=== PATIENT | male | born 1995 | race Caucasian/White ===

== ENCOUNTER 2018-10-13 14:51 | Emergency (ER) | payer SELFPAY ==
[2018-10-13 14:51] VITALS: BP 153/72; PULSE 60; RESP 16; TEMP 36.8; O2SAT 97; BMI 24.3
--- NOTE | 2018-10-13 15:12 | EKG12_ITS ---
Test Reason : SOB Blood Pressure : / mmHG Vent. Rate : 067 BPM Atrial Rate : 067 BPM P-R Int : 138 ms QRS Dur : 104 ms QT Int : 408 ms P-R-T Axes : 073 081 058 degrees QTc Int : 431 ms Normal sinus rhythm with sinus arrhythmia Normal ECG Confirmed by YESSENIA DIETRICH ([id number]), desk editor MARIA ELENA GONZALES ([id number]) on 10/14/2018 2:18:24 PM Referred By: DARYA Confirmed By:YESSENIA DIETRICH
--- NOTE | 2018-10-13 15:13 | RAD_ITS ---
STUDY: X-RAY CHEST REASON FOR EXAM: Male, 22 years old. Shortness of breath/dyspnea. TECHNIQUE: Single AP portable view of the chest. COMPARISON: None. FINDINGS: The lungs are clear and expanded. There is no demonstrated pleural abnormality. Normal size heart. Normal mediastinum and juanita. Normal visualized pulmonary arteries. Normal visualized aortic arch and descending thoracic aorta. Normal visualized thoracic spine. Normal visualized ribs, clavicles, and shoulders. There is no demonstrated abnormality of the visualized soft tissue structures of the upper abdomen. RAD/Chest 1 View (Portable) IMPRESSION: Normal x-ray examination of the chest. Electronically Signed: Gumaro Mendoza, at 15:31 EDT , Service support ,
--- NOTE | 2018-10-13 15:20 | ED.VISSUMM ---
- ER Visit Summary Date of Service: 10/13/18 Chief Complaint: Poison miguelina History of Present Illness: The patient is a 22 M presenting with poison miguelina. Patient states this started a week ago. He states he was outside around poison miguelina and basically rolled around in poison miguelina. He has tried zthq-vxa-tumklyc cream at home. He complains of itching all over. He also complains of a cough and shortness of breath. He denies fever. Denies chest pain. Denies other complaints. Physical Examination: Vitals are stable. Patient is afebrile. Alert no acute distress. HEENT exam is unremarkable. Pharynx is unremarkable. No tongue swelling or pharyngeal edema. Neck is supple. Lungs are clear and equal bilaterally. Heart is regular rate and rhythm. Abdomen is soft nontender nondistended. Extremities are unremarkable. Skin is warm and dry. Rash consistent with poison miguelina bilateral upper extremities, trunk and lower extremities No focal neurologic deficit. Remainder of exam is unremarkable. Emergency Department Course and Treatment: He was given Solu-Medrol IV. EKG is sinus rhythm rate of 67 with no acute ischemic changes. Chest x-ray shows no acute process. CBC, chemistries unremarkable. Troponin is negative. D-dimer negative. On reevaluation, patient is feeling much improved. He is given a prescription for prednisone. He is advised to follow-up with Dr. Smith pensionholder information clerk for no doctor. Advised return to ED for worsening complaints. Disposition: Discharge home Impression: Poison miguelina This note was generated with [employer] dictation software. It may contain incorrect words, spelling, and punctuation that were not noted in review of the chart prior to signing ED Disposition - Plan for ED Patient: Instructions: Poison Miguelina Dermatitis Prescriptions: Prednisone 10 mg PO UD #33 tab Prescription Printed Referrals: Reyes Smith MD [NON-STAFF] -
[2018-10-13 15:36] LABS: Absolute Neutrophil Count 3.6 X10^3/uL (2.0-7.7); Basophil# 0.02 X10^3/uL; Basophil% 0.3 % (0-1); Eosinophil# 0.13 X10^3/uL; Eosinophils% 2.2 % (0-5); Hematocrit 43.1 % (40-54); Hemoglobin 14.8 g/dL (13.0-16.5); Lymphocyte % 27.6 % (19-41); Mean Corp Hgb Conc 34.3 g/dL (32-36); Mean Corpuscular Hgb 30.7 pg (27.0-32.0); Mean Corpuscular Volume 89.4 fL (80-94); Mean Platelet Vol. 8.9 fl (6.2-12.0); Monocyte# 0.47 X10^3/uL; Monocyte% 8.1 % (0-10); NRBC Flagged by Analyzer 0 % (0-5); Neutrophil # 3.55 X10^3/uL (2.7-7.7); Neutrophil % 61.5 % (47-70); Platelet Count 294 K/mm3 (150-450); RBC Distribution Width CV 12.4 % (11.6-14.6); RBC Distribution Width SD 40.7 fl (35.1-43.9); Red Blood Count 4.82 M/mm3 (4.6-6.2); White Blood Count 5.8 K/mm3 (4.4-11.0)
[2018-10-13] MEDS: MethylPREDNISolone 125 MG/2 ML Vial IV (15:49)
[2018-10-13] MEDS: 0.9% Normal Saline 1,000 ML 1000 ML IV (15:50)
[2018-10-13 15:52] LABS: D-Dimer Quantitative (DVT/PE) < 0.27 FEU/ug/m (0.27-0.49)
[2018-10-13 15:56] LABS: Anion Gap 5 (5-15); BUN 12 mg/dL (7-18); BUN/Creat Ratio 11.1 RATIO (10-20); Calcium,Total 8.7 mg/dL (8.5-10.1); Chloride 107 mmol/L (98-107); Creatinine, Serum 1.08 mg/dL (0.70-1.30); EST Glomerular Filtration Rate 89 mL/min (>60); Est Glom Filt Rate - Afr Amer 107 mL/min (>60); Estimated Creatinine Clearance 122.62 ml/min; Glucose 92 mg/dL (74-106); Potassium 3.9 mmol/L (3.5-5.1); Sodium Level 139 mmol/L (136-145)
--- NOTE | 2018-10-13 16:02 | ED.DEP ---
ED Disposition - Plan for ED Patient: Instructions: Poison Miguelina Dermatitis Prescriptions: Prednisone 10 mg PO UD #33 tablet Referrals: Reyes Smith MD [NON-STAFF] -
== END 2018-10-13 16:29 | disposition home or self-care (01) ==
LOC: ED 16:05
PROVIDERS: Emergency Provider Emergency Medicine
DX: L23.7 Allergic contact dermatitis due to plants, except food (principal); Z72.0 Tobacco use
CPT/HCPCS: 71045; 80048; 84484; 85025; 85379; 93005; 96361; 96374; 99283; J7030; A4216

== ENCOUNTER 2019-02-13 16:08 | Emergency (ER) | payer MEDICAID, SELFPAY ==
[2019-02-10 15:43] VITALS: BMI 24.3
[2019-02-13 16:09] VITALS: BP 155/76; PULSE 79; RESP 16; TEMP 36.9; O2SAT 97; BMI 26.9
--- NOTE | 2019-02-13 16:22 | RAD_ITS ---
STUDY: X-RAY CHEST REASON FOR EXAM: Male, 23 years old. Upper mid abdominal pain TECHNIQUE: PA and lateral views of the chest. COMPARISON: 10/13/2018 FINDINGS: The lungs are clear and expanded. There is no demonstrated pleural abnormality. Normal size heart. Normal mediastinum and juanita. Normal visualized pulmonary arteries. Normal visualized aortic arch and descending thoracic aorta. Normal visualized thoracic spine. Normal visualized ribs, clavicles, and shoulders. There is no demonstrated abnormality of the visualized soft tissue structures of the upper abdomen. RAD/Chest PA and Lateral IMPRESSION: Normal x-ray examination of the chest. Electronically Signed: Peter Mistry DO at 17:16 EST Tel , Service support ,
--- NOTE | 2019-02-13 16:22 | EKG12_ITS ---
Test Reason : ABD PAIN Blood Pressure : / mmHG Vent. Rate : 062 BPM Atrial Rate : 062 BPM P-R Int : 134 ms QRS Dur : 104 ms QT Int : 420 ms P-R-T Axes : 067 081 050 degrees QTc Int : 426 ms Normal sinus rhythm with sinus arrhythmia Normal ECG Confirmed by MANUEL BINGHAM, UVALDO ([id number]), photograph editor CAREY DRUMMOND ([id number]) on 02/14/2019 11:33:27 AM Referred By: CELSA Confirmed By:UVALDO JACKSON MD
--- NOTE | 2019-02-13 16:23 | ED.DCSUM_ITS ---
History of Present Illness Chief Complaint: Abd Pain Detail of Chief Complaint: Cough, chest pain, abdominal pain, vomiting, diarrhea Informant: Patient Onset: Days Narrative: [facility] secondary to bronchitis type symptoms. He does report a chronic cough for the past year or so it seemed to worsen. He is bringing up yellow sputum. He was given a course of Zithromax. Patient states he was doing better yesterday but woke this morning with epigastric pain, nausea, vomiting, and diarrhea. He has had some sweats at home but has not measured a fever. - Past Medical History (1) Bronchitis Status: Acute Past Medical History - Allergies and Home Meds Allergies/Adverse Reactions: Allergies No Known Allergies Allergy (Verified 02/10/19 15:03) Primary Care Physician: Care Physician,No Primary [Primary Care Provider] - Surgical History: no surgical history Lives: With Family Smoking Status: Current every day smoker Alcohol: Occasional Review of Systems General: Reports: Fever, Subjective, Sweats Eyes: Denies: Visual changes - bilaterally ENT: Denies: Bilateral ear pain Cardiovascular: Reports: Chest pain Respiratory: Reports: Cough, Sputum Gastrointestinal: Reports: Abdominal pain, Nausea, Vomiting, Diarrhea Genitourinary: Denies: Dysuria Musculoskeletal: Reports: Myalgias. Denies: Extremity Pain Skin: Denies: Rash Neurological: Reports: Headache Psych: Denies: Depression, Anxiety Hematologic: Denies: Easy bruising, Easy bleeding Allergy: Denies: Uticaria Physical Exam Vital Signs/Narrative: Vital Signs Temp Pulse Resp BP Pulse Ox 02/13/19 16:09 98.4 F 79 16 155/76 H 97 Inital Vital Signs reviewed: Yes General: Well nourished, Well developed Head: Normocephalic ENT: Moist mucous membranes Neck: Supple, Nontender Cardiovascular: Regular rate, Regular rhythm Respiratory: No distress, CTA bilaterally Abdomen: Soft, Tender - Mild epigastric tenderness., Hypoactive bowel sounds. Negative for: Guarding, Rebound tenderness Extremities: Nontender Skin: Normal color Neurological: Alert, Oriented x3 Psychological: Normal affect Diagnostic/Tx/Re-eval Impressions Chest X-Ray 02/13/19 16:22 IMPRESSION: Normal x-ray examination of the chest. Electronically Signed: Peter Mistry DO at 17:16 EST Tel , Service support , 02/13/19 16:22 Chest PA and Lateral [RAD] Stat Laboratory Results 02/13/19 02/13/19 16:37 16:37 WBC 10.2 RBC 5.06 Hgb 15.0 Hct 44.2 MCV 87.4 MCH 29.6 MCHC 33.9 RDW Std Deviation 39.4 RDW Coeff of John 12.3 Plt Count 261 MPV 9.2 Immature Gran % (Auto) 0.300 Neut % (Auto) 82.4 H Lymph % (Auto) 9.7 L Waller % (Auto) 6.1 Eos % (Auto) 1.4 Baso % (Auto) 0.1 Absolute Neuts (auto) 8.4 H Absolute Lymphs (auto) 0.99 Nucleated RBC % 0 Sodium 139 Potassium 4.0 Chloride 110 H Carbon Dioxide 25.0 Anion Gap 4 L BUN 17 Creatinine 1.04 Estim Creat Clear Calc 126.24 Est GFR (MDRD) Af Amer 112 Est GFR (MDRD) Non-Af 92 BUN/Creatinine Ratio 16.3 Glucose 80 Calcium 8.4 L Total Bilirubin 0.80 Direct Bilirubin 0.18 AST 128 H ALT 86 H Alkaline Phosphatase 67 Total Protein 7.6 Albumin 4.1 Globulin 3.5 Lipase 74 - EKG Initial EKG Interpretation: Sinus Rhythm - Sinus at 62 with no acute ischemia. - Medical Decision Making Patient was given Toradol, Zofran, Bentyl, and IV fluids. On repeat evaluation he does feel improved. I discussed with him I believe his symptoms are viral in nature. He will be given prescriptions for naproxen, Zofran, Bentyl at home. Patient will be referred to Dr. Quiroz for follow-up, next on the no doc list. ED Disposition - Plan for ED Patient: Disposition: Home or Assisted Living Diagnosis: Viral gastroenteritis Instructions: GASTROENTERITIS, Viral (4y-Adult) Prescriptions: Dicyclomine HCl [Bentyl] 20 mg PO TIDAC #20 cap Transmission Status: Pending to [facility] #30 Naproxen [Naprosyn] 500 mg PO BID PRN PRN #20 tab PRN Reason: Pain Score 1-10/10 Transmission Status: Pending to [facility] #30 Ondansetron [Zofran Odt] 4 mg PO Q8H PRN PRN #10 tab PRN Reason: Nausea Transmission Status: Pending to [facility] #30 Referrals: Edvin Quiroz III, MD [STAFF PHYSICIAN] - As Needed
[2019-02-13] MEDS: Ketorolac 30 MG/ML Syringe IV (16:34)
[2019-02-13] MEDS: Ondansetron 4 MG/2 ML Vial IV (16:34)
[2019-02-13] MEDS: 0.9% Normal Saline 1,000 ML 1000 ML IV (16:34)
[2019-02-13] MEDS: Dicyclomine 10 MG Capsule 20 MG PO (16:40)
[2019-02-13 16:53] LABS: Absolute Lymphocyte Count 0.99 X10^3/uL (0.83-4.51); Absolute Neutrophil Count 8.4 X10^3/uL (2.0-7.7); Basophil# 0.01 X10^3/uL; Basophil% 0.1 % (0-1); Eosinophil# 0.14 X10^3/uL; Eosinophils% 1.4 % (0-5); Hematocrit 44.2 % (40-54); Lymphocyte # 0.99 X10^3/ul (4.0); Lymphocyte % 9.7 % (19-41); Mean Corp Hgb Conc 33.9 g/dL (32-36); Mean Corpuscular Hgb 29.6 pg (27.0-32.0); Mean Corpuscular Volume 87.4 fL (80-94); Mean Platelet Vol. 9.2 fl (6.2-12.0); Monocyte# 0.62 X10^3/uL; Monocyte% 6.1 % (0-10); NRBC Flagged by Analyzer 0 % (0-5); Neutrophil # 8.43 X10^3/uL (2.7-7.7); Neutrophil % 82.4 % (47-70); Platelet Count 261 K/mm3 (150-450); RBC Distribution Width CV 12.3 % (11.6-14.6); RBC Distribution Width SD 39.4 fl (35.1-43.9); Red Blood Count 5.06 M/mm3 (4.6-6.2); White Blood Count 10.2 K/mm3 (4.4-11.0)
[2019-02-13 17:17] LABS: AST(SGOT) 128 U/L (15-37); Alanine Aminotransfer ALT/SGPT 86 U/L (16-61); Albumin, Serum 4.1 g/dL (3.2-5.0); Alkaline Phosphatase 67 U/L (45-117); Anion Gap 4 (5-15); BUN 17 mg/dL (7-18); BUN/Creat Ratio 16.3 RATIO (10-20); Bilirubin, Direct 0.18 mg/dL (0.00-0.30); Calcium,Total 8.4 mg/dL (8.5-10.1); Chloride 110 mmol/L (98-107); Creatinine, Serum 1.04 mg/dL (0.70-1.30); EST Glomerular Filtration Rate 92 mL/min (>60); Est Glom Filt Rate - Afr Amer 112 mL/min (>60); Estimated Creatinine Clearance 126.24 ml/min; Globulin 3.5 g/dL (2.2-4.2); Glucose 80 mg/dL (74-106); Lipase 74 U/L (73-393); Protein, Total 7.6 g/dL (6.4-8.2); Sodium Level 139 mmol/L (136-145)
[2019-02-13 17:56] VITALS: BP 121/76; PULSE 73; RESP 16; O2SAT 99
== END 2019-02-13 17:57 | disposition home or self-care (01) ==
PROVIDERS: Emergency Provider Emergency Medicine
DX: A08.4 Viral intestinal infection, unspecified (principal); F17.200 Nicotine dependence, unspecified, uncomplicated
CPT/HCPCS: 71046; 80048; 80076; 83690; 85025; 93005; 96361; 96374; 96375; 99284; J7030; A4216; J2405

== ENCOUNTER 2019-03-03 12:27 | Emergency (ER) | payer MEDICAID, SELFPAY ==
[2019-03-03 12:28] VITALS: BP 141/83; PULSE 80; RESP 17; TEMP 37.1; O2SAT 99; BMI 26.9
--- NOTE | 2019-03-03 12:31 | RAD_ITS ---
STUDY: X-RAY - LEFT ANKLE REASON FOR EXAM: Male, 23 years old. LEFT FOOT INJURY WHILE LIFTING COUCH OUT OF A TRUCK. TECHNIQUE: 3 view(s) of the ankle. COMPARISON: None. FINDINGS: No acute fracture, dislocation or osseous destruction. Ankle mortise well aligned. No significant joint space narrowing. No significant productive changes. Mild swelling. RAD/Ankle min 3 Views IMPRESSION: Left ankle intact Electronically Signed: Shane Lang DO at 13:15 EST Tel , Service support ,
--- NOTE | 2019-03-03 13:11 | ED.DCSUM_ITS ---
History of Present Illness Chief Complaint: Lower Extremity Injury Informant: Patient Onset: Yesterday Narrative: Patient states that late last night he was squatted down attempting to lift up a couch when his left ankle rolled inward resulted in pain and swelling parti cularly laterally but he also has some pain medially. It very painful for him difficult to ambulate. Denies any upper leg symptoms. He denies any pain in the lateral aspect of his foot. Past Medical History - Allergies and Home Meds Allergies/Adverse Reactions: Allergies No Known Allergies Allergy (Verified 03/03/19 12:28) Primary Care Physician: Care Physician,No Primary [Primary Care Provider] - Surgical History: no surgical history Smoking Status: Current every day smoker Review of Systems General: Denies: Chills, Fever, Sweats Eyes: Denies: Visual changes - bilaterally, Diplopia ENT: Denies: Rhinorrhea, Sore throat Cardiovascular: Denies: Chest pain, Palpitations Respiratory: Denies: Dyspnea, Cough, Dyspnea on exertion Gastrointestinal: Denies: Abdominal pain, Nausea, Vomiting, Diarrhea, Melena, Hematochezia Genitourinary: Denies: Dysuria, Hematuria, Frequency Musculoskeletal: Reports: Extremity Pain. Denies: Neck pain, Back pain Skin: Denies: Rash, Wounds Neurological: Denies: Headache, Weakness, Numbness Physical Exam Vital Signs/Narrative: Vital Signs Temp Pulse Resp BP Pulse Ox 03/03/19 12:28 98.8 F 80 17 141/83 H 99 Inital Vital Signs reviewed: Yes General: Well nourished, Well developed, No Acute Distress Head: Normocephalic, Atraumatic Eyes: Perrl, EOMI ENT: Moist mucous membranes, No rhinorrhea Neck: Supple, Nontender Cardiovascular: Regular rate, Regular rhythm, No murmurs Respiratory: No distress, CTA bilaterally, Chest nontender Abdomen: Soft, Nontender, Nondistended, Normal bowel sounds Back: Nontender, Normal Inspection Extremities: Tenderness - There is tenderness over the lateral aspect of the lateral malleolus. There is tenderness there as well as over the medial aspect. No fifth metatarsal pain. No fibular head pain. There is no tibial shaft pain. Skin: Normal color, No rash Neurological: Alert, Oriented x3, Cranial nerves II-XII grossly intact, Normal Strength, Normal Sensation Psychological: Normal affect, Normal Mood Diagnostic/Tx/Re-eval - Medical Decision Making X-rays of the ankle did not demonstrate an obvious fracture. Patient was placed in Lalo wrap and given crutches. He will follow podiatry if he is not improving. Patient was advised that by definition a sprain is a stretching or tearing of ligaments. We talked about the possibility of occult fracture. Patient notes understanding of her plan is comfortable with it. ED Disposition - Plan for ED Patient: Disposition: Home or Assisted Living Diagnosis: Left ankle sprain Instructions: Sprain, Ankle, with X-Ray Referrals: Brian Abbott DPM [STAFF PHYSICIAN] - 10-14 Days if not better
[2019-03-03 13:43] VITALS: PULSE 71; PULSE 77; RESP 16; RESP 18; O2SAT 98; O2SAT 99
== END 2019-03-03 13:54 | disposition home or self-care (01) ==
LOC: ED 13:37
PROVIDERS: Emergency Provider Emergency Medicine
DX: S93.402A Sprain of unspecified ligament of left ankle, initial encounter (principal); X50.0XXA Overexertion from strenuous movement or load, initial encounter; Y93.89 Activity, other specified; F17.200 Nicotine dependence, unspecified, uncomplicated
CPT/HCPCS: 73610; 99283

== ENCOUNTER 2019-08-17 10:44 | Emergency (ER) | payer MEDICAID, SELFPAY ==
[2019-08-17 10:45] VITALS: BP 155/77; PULSE 81; RESP 17; TEMP 36.3; O2SAT 95; BMI 29.7
--- NOTE | 2019-08-17 10:53 | ED.VIS.GEN ---
History of Present Illness Chief Complaint: Upper Extremity Injury Informant: Patient Onset: Today Context: Sudden Onset Current Severity: Moderate Maximum Severity: Moderate Narrative: Patient presents with pain to the right shoulder. He states he was trying to catch an object that was very heavy. He caught it about chest height and felt his right arm give out. He felt a pop in his right shoulder. He is right-hand dominant. He denies paresthesias into the hand. He did not take anything for pain prior to arrival. He did drive himself to the emergency room. Past Medical History - Allergies and Home Meds Allergies/Adverse Reactions: Allergies No Known Allergies Allergy (Verified 08/17/19 10:45) Primary Care Physician: Care Physician,No Primary [Primary Care Provider] - Prior records reviewed: Yes Past Medical History: None Surgical History: no surgical history Lives: With Family Smoking Status: Current every day smoker Review of Systems General: Denies: Chills, Fever Eyes: Denies: Visual changes - bilaterally ENT: Denies: Bilateral ear pain Cardiovascular: Denies: Chest pain Respiratory: Denies: Dyspnea, Cough Gastrointestinal: Denies: Abdominal pain, Nausea, Vomiting, Diarrhea Musculoskeletal: Reports: Extremity Pain Neurological: Reports: Weakness. Denies: Parasthesia Hematologic: Denies: Easy bruising, Easy bleeding Allergy: Denies: Uticaria Physical Exam Vital Signs/Narrative: Vital Signs Temp Pulse Resp BP Pulse Ox 08/17/19 10:45 97.4 F L 81 17 155/77 H 95 Inital Vital Signs reviewed: Yes General: Well nourished, Well developed Head: Normocephalic ENT: Moist mucous membranes Neck: Supple Cardiovascular: Regular rate, Regular rhythm Respiratory: No distress, CTA bilaterally Abdomen: Soft, Nontender Extremities: - - No tenderness along the right clavicle. He does have reproducible tenderness over the proximal humeral head along tendon insertion sites. No obvious deformity or sign of dislocation. He does have decreased range of motion secondary to pain. There is no tenderness at the elbow, forearm, wrist, or hand. Strong distal pulses and normal sensation are noted. No posterior tenderness over the scapula. Skin: Normal color Neurological: Alert, Oriented x3 Psychological: Normal affect Diagnostic/Tx/Re-eval Impressions Shoulder X-Ray 08/17/19 11:00 IMPRESSION: Normal x-ray examination of the shoulder. Electronically Signed: Gumaro Mendoza at 11:17 EDT , Service support , 08/17/19 11:00 Shoulder min 2 Views [RAD] Stat - Medical Decision Making Patient was given naproxen on arrival. X-ray results are discussed with him. He will be placed in a sling. He is instructed to come out of the sling a few times a day to work on range of motion at his shoulder. He is referred to orthopedics if not improving. He will be given a prescription for naproxen as well as a few Aurelia for breakthrough pain. ED Disposition - Plan for ED Patient: Disposition: Home or Assisted Living Diagnosis: Sprain of right shoulder Instructions: ED Shoulder Sprain Prescriptions: Naproxen [Naprosyn] 500 mg PO BID PRN PRN #20 tab PRN Reason: Pain Score 4-10/10 Transmission Status: Pending to [facility] #30 Hydrocodone Bitart/Apap 5-325 [Aurelia 5MG-325MG] 1 tab PO Q6H PRN PRN 3 Days #10 tab PRN Reason: Pain Transmission Status: Sent to [facility] #30 Referrals: Isabel Heller DO [STAFF PHYSICIAN] - 3-5 Days if not improving
--- NOTE | 2019-08-17 11:00 | RAD_ITS ---
STUDY: X-RAY - RIGHT SHOULDER REASON FOR EXAM: Male, 23 years old. FELT A POP IN RIGHT SHOULDER WHILE ATTEMPTING TO CATCH SOMETHING THIS AM TECHNIQUE: 4 view(s) of the shoulder. COMPARISON: None. FINDINGS: Normal glenohumeral articulation. Normal acromioclavicular joint. Normal acromion. Normal humeral head and visualized proximal humerus. The soft tissue structures are unremarkable. Normal visualized pulmonary apex. RAD/Shoulder min 2 Views IMPRESSION: Normal x-ray examination of the shoulder. Electronically Signed: Gumaro Mendoza, at 11:17 EDT , Service support ,
[2019-08-17] MEDS: Naproxen 500 MG Tablet PO (11:25)
== END 2019-08-17 11:46 | disposition home or self-care (01) ==
PROVIDERS: Emergency Provider Emergency Medicine
DX: S43.401A Unspecified sprain of right shoulder joint, initial encounter (principal); X58.XXXA Exposure to other specified factors, initial encounter; Y93.89 Activity, other specified; Y92.9 Unspecified place or not applicable; F17.200 Nicotine dependence, unspecified, uncomplicated
CPT/HCPCS: 73030; 99283

== ENCOUNTER 2020-06-02 21:37 | Emergency (ER) | payer MEDICAID, SELFPAY ==
[2020-06-02 21:39] VITALS: BP 158/69; PULSE 78; RESP 16; TEMP 36.4; O2SAT 99; BMI 32.1
--- NOTE | 2020-06-02 22:06 | ED.VIS.GEN ---
History of Present Illness Chief Complaint: Sore Throat Informant: Patient Onset: Weeks Maximum Severity: Mild Narrative: Patient presents complaining of sore throat on and off for months, he indicates basically he smokes quite a bit of cigarettes and he has a propensity to smoke quite a bit of marijuana and recently has been smoking marijuana throughout pipe that makes the marijuana very hot it causes the fumes that he inhales to be hot he smoked this hot fumes of marijuana today and had persistent sense of throat discomfort he came in for evaluation, He has no history of strep throat no history of HEENT problems no past history, he has had no stridor no drooling he is eating and drinking well this was precipitated directly by 6 inhaling these hot marijuana fumes Past Medical History - Allergies and Home Meds Allergies/Adverse Reactions: Allergies No Known Allergies Allergy (Verified 06/02/20 21:41) Primary Care Physician: Care Physician,No Primary [Primary Care Provider] - Past Medical History: None Surgical History: no surgical history Smoking Status: Current every day smoker Physical Exam Vital Signs/Narrative: Vital Signs Temp Pulse Resp BP Pulse Ox 06/02/20 21:39 97.6 F L 78 16 158/69 H 99 General: Well nourished, Well developed, No Acute Distress Head: Normocephalic, Atraumatic Eyes: Perrl, EOMI ENT: Moist mucous membranes, No rhinorrhea, - - Patient's HEENT exam is entirely unremarkable speaking full sentences his oral cavity pharynx uvula all mucosal tissue unremarkable he is swallowing normally speaking normally palpation of his neck and the larynx is completely negative he reports that he feels if his throat is inflamed Neck: Supple, Nontender Cardiovascular: Regular rate, Regular rhythm, No murmurs Respiratory: No distress, CTA bilaterally, Chest nontender Abdomen: Soft, Nontender, Nondistended, Normal bowel sounds Back: Nontender, Normal Inspection Extremities: Nontender, No edema Skin: Normal color, No rash Neurological: Alert, Oriented x3, Cranial nerves II-XII grossly intact, Normal Strength, Normal Sensation Psychological: Normal affect, Normal Mood Diagnostic/Tx/Re-eval - Medical Decision Making Patient is in no distress I had a long conversation with him, there is no signs of any type of HEENT airway emergency I have cautioned him not to continue to smoke cigarettes or the marijuana in any way we did provide him with viscous lidocaine to gargle and then spit out to relieve his pain, he will stay on cold liquids follow-up with his outpatient providers and return for change in symptoms Home stable Final impression throat irritation after smoking hot marijuana fumes ED Disposition - Plan for ED Patient: Diagnosis: Pharyngitis Instructions: ED Pharyngitis, Viral Referrals: Care Physician,No Primary [Primary Care Provider] - Altagracia Williamson [NON-STAFF] - Additional Instructions: Stop smoking the marijuana and cigarettes, cold liquids follow-up with outpatient providers return for change in symptoms
[2020-06-02 22:31] VITALS: RESP 16
== END 2020-06-02 22:31 | disposition home or self-care (01) ==
LOC: ED 22:22
PROVIDERS: Emergency Provider Emergency Medicine
DX: J02.9 Acute pharyngitis, unspecified (principal); F17.210 Nicotine dependence, cigarettes, uncomplicated
CPT/HCPCS: 99283

== ENCOUNTER 2020-06-30 02:36 | Emergency (ER) | payer MEDICAID, SELFPAY ==
[2020-06-30 02:36] VITALS: BP 145/83; PULSE 78; RESP 16; TEMP 36.4; O2SAT 98; BMI 31.4
--- NOTE | 2020-06-30 03:28 | EDS_ITS ---
HPI History of Present Illness Chief Complaint: Eye Problem Informant: patient Narrative Narrative: Patient is a 24-year-old previously healthy male who presents to the emergency department for right eye pain. This started a few hours prior to arrival in the ED. He has never had this before in the past. He noticed that his eye was very red and he thought that there was something in it. He does have a foreign body sensation in the eye. He has not noticed any discharge from the eye. He has had a mild cough that is productive of yellow sputum. Denies any fevers or chills. He said a mild sore throat lately. No known sick contacts. He has had multiple coronavirus test which have all been negative. He denies any chest pain or shortness of breath. No vision change or loss. No significant ear pain. [facility] Medical History (Updated 06/30/20 @ 04:[address] William Gutierres, DO) Anemia Back pain Chest pain Dizziness Fatigue Head ache Knee pain Loss of consciousness Neck pain Shortness of breath Shoulder pain Weight loss Home Medications erythromycin 0.5 inch OPHTHALMIC (EYE) BID 7 Days #1 g 06/30/20 [Rx Last Taken U nknown] Allergy/AdvReac Type Severity Reaction Status Date / Time No Known Allergies Allergy Verified 06/30/20 02:36 Family History Other Diabetes Heart disease Social History (Updated 04/19/20 @ 13:06 by Jemal WEST, PA) Smoking Status: Current every day smoker alcohol intake: current Alcohol type: beer ROS ROS ED Constitutional Constitutional ED: Denies chills or fever(s) Eyes Eyes: Reports other Details: Eye pain and redness ; Denies blurry vision or change in vision ENT ENT ED: Reports sore throat; Denies epistaxis or rhinorrhea Cardiovascular Cardiovascular: Denies chest pain or palpitations Respiratory/Chest Respiratory/Chest: Reports cough; Denies dyspnea or dyspnea on exertion Gastrointestinal Gastrointestinal: Denies abdominal pain, diarrhea, nausea or vomiting Musculoskeletal Musculoskeletal: Denies back pain or neck pain Integumentary Denies rash Neurologic Neurologic: Denies dizziness, headache(s) or weakness EXAM Physical Exam Const Vital Signs: 06/30/20 02:36 Temperature 97.5 F L Temperature Source Temporal Pulse Rate 78 Respiratory Rate 16 Blood Pressure 145/83 H Blood Pressure Mean 103 Pulse Ox 98 Oxygen Delivery Method Room Air Positive well nourished and well developed General Appearance ED: well developed and NAD HEENT Reports normocephalic, head/scalp atraumatic and moist mucous membranes Eyes PERRL and EOMs intact bilaterally General Eye ED: Yes other Other Details: Pupils are equal round and reactive to light ; Negative for proptosis Eyelid: other Other Details: Mild swelling of upper and lower eyelid. Sclera: sclera abnormal Positive for right Details: scleral injection Neck no lymphadenopathy and supple General: Negative for tenderness Chest Wall inspection of chest normal Resp normal respiratory effort and clear to auscultation bilaterally Auscultation: Negative for rales, rhonchi or wheezes Cardio regular rate, regular rhythm and no murmurs GI normal to inspection, nondistended, normoactive bowel sounds and non-tender Palpation: soft; Negative for guarding or rebound tenderness present Back/Spine no CVA tenderness Extremity normal to inspection General Extremety ED: Negative for edema or tenderness General Extremity: Negative for edema Neuro oriented x3 Sensorium / Orientation: alert Psych mental status grossly normal Skin no rashes or lesions noted MDM MDM MDM Narrative Medical decision making narrative: Patient presents to the ED for right eye redness and pain. He does have URI symptoms currently this could be an infective conjunctivitis. He does have a foreign body sensation so fluoroscein exam exam is being performed. Exam did not reveal any corneal abrasion. We'll treat this as conjunctivitis. If he develops any purulent discharge she can start the antibiotic that was prescribed. Most likely viral conjunctivitis at this time given his URI symptoms with it. He is to follow-up with his PCP. Return precautions are reviewed with him. He understands and is agreeable this plan. Discharged home in stable condition. All questions were answered. Discharge Plan Triage Chief Complaint: Eye Problem ED Provider: William Gutierres Dx/Rx/DC Orders Clinical Impression: Conjunctivitis Instructions: ED Conjunctivitis, Viral Prescriptions: New erythromycin 5 mg/gram (0.5 %) ointment 0.5 inch ophthalmic (eye) BID 7 Days Qty: 1 RF: 0 Primary Care Provider: Care Physician,No Primary Referrals: Care Physician,No Primary [Primary Care Provider] - 3-5 Days if not improving Disposition Disposition: Home, self care Discharge Date/Time: 06/30/20 04:09
[2020-06-30] MEDS: Tetracaine 0.5% Ophthalmic Bottle 1 DRP RIGHT EYE (04:07)
== END 2020-06-30 04:09 | disposition home or self-care (01) ==
PROVIDERS: Emergency Provider Emergency Medicine
DX: H10.9 Unspecified conjunctivitis (principal); F17.200 Nicotine dependence, unspecified, uncomplicated
CPT/HCPCS: 99282

== ENCOUNTER 2021-04-25 16:51 | Emergency (ER) | payer BC, OTHER, MEDICAID, SELFPAY ==
[2021-04-25 16:51] VITALS: BP 170/89; PULSE 81; RESP 14; TEMP 36.2; O2SAT 97; BMI 29.0
--- NOTE | 2021-04-25 17:39 | EX.ED.VIS.UR ---
HPI HPI - URI History of Present Illness Chief Complaint: Sore Throat Informant: patient Onset/Context/Timing Onset: Weeks Context: Sudden Onset Timing: Continuous Quality: Throat pain, hoarse voice and a lesion posterior pharynx Location: Posterior pharynx anterior neck Current Severity: Mild Maximum Severity: Moderate Worsened by: Swallowing Associated Symptoms Associated Symptoms: Negative for Nasal Congestion, Headache, Sinus Pressure, Myalgias, Nausea, Vomiting, Diarrhea, Shortness of Breath, Chest Pain, Nonproductive cough, Hemoptysis and Productive Cough Narrative Narrative: Patient is a 25-year-old male who presents because of throat pain. He says of the lesion the back of his throat. He reports it is painful to swallow liquids or solids. His voice is hoarse. He denies fever. He denies rhinorrhea, congestion or postnasal drainage. He denies cough. He complains of pain over the larynx. He denies history of medic fever, heart murmur, SBE or being immune suppressed. Prior similar symptoms: Yes Recent Illness/Hospitalization: No ROS ROS ED Constitutional Constitutional ED: Denies chills, fever(s), subjective, sweats or weight loss Eyes Eyes: Denies blurry vision, change in vision or diplopia ENT ENT ED: Reports sore throat; Denies ear pain or rhinorrhea Cardiovascular Cardiovascular: Denies chest pain or palpitations Respiratory/Chest Respiratory/Chest: Denies cough, dyspnea or dyspnea on exertion Gastrointestinal Gastrointestinal: Denies abdominal pain, diarrhea, nausea or vomiting Musculoskeletal Musculoskeletal: Reports neck pain; Denies arthralgias, back pain or myalgias Integumentary Denies rash Neurologic Neurologic: Denies headache(s), paresthesias or weakness Hematologic/Lymphatic Hematologic/Lymphatic: Denies easy bleeding or easy bruising Allergic/Immunologic Allergic/Immunologic ED: Denies mouth swelling or tongue swelling PFSH PFSH Medical History (Updated 04/25/21 @ 18:[address] Du Rowe MD) Anemia Back pain Chest pain Dizziness Fatigue Head ache Knee pain Loss of consciousness Neck pain Shortness of breath Shoulder pain Weight loss Home Medications NK 04/25/21 [History Last Taken Unknown] Allergy/AdvReac Type Severity Reaction Status Date / Time No Known Allergies Allergy Verified 04/25/21 17:55 Family History Other Diabetes Heart disease Social History (Updated 04/25/21 @ 17:[address] Du Rowe MD) household members: other Smoking Status: Current every day smoker tobacco type: cigarettes alcohol intake: current Alcohol type: beer substance use type: does not use EXAM Physical Exam Const Vital Signs: 04/25/21 16:51 Temperature 97.2 F L Temperature Source Temporal Pulse Rate 81 Respiratory Rate 14 Blood Pressure 170/89 H Blood Pressure Mean 116 Pulse Ox 97 Oxygen Delivery Method Room Air Blood pressure is elevated. He denies history of hypertension. Positive well nourished and well developed General Appearance ED: well developed and NAD; Negative for cyanotic, diaphoretic or pallor HEENT Reports TM's clear and moist mucous membranes normocephalic and atraumatic Face and Sinus: Negative for sinus tenderness External Ear: external ears normal External Auditory Canal: EAC's normal Tympanic Membrane ED: Yes TM's clear Teeth and Gingiva: Negative for caries Throat: posterior oropharynx abnormal Positive for erythema; Negative for posterior oropharynx normal or tonsils abnormal Eyes PERRL and EOMs intact bilaterally General Eye ED: Negative for pale conjunctiva or scleral icterus Neck no lymphadenopathy, supple, no meningeal signs and no JVD Neck Narrative: There is pain to the patient and movement of larynx. There is no inspiratory expiratory stridor. Resp normal respiratory effort and clear to auscultation bilaterally Cardio S1 normal heart sound, S2 normal heart sound and no murmurs Rate: regular rate Rhythm: regular rhythm Bruits: Negative for carotid bruit Neuro oriented x3 and CN's II-XII intact bilaterally Sensorium / Orientation: alert Psych mental status grossly normal Skin General Skin Exam: Negative for jaundice or pallor Lesions: no lesions Rashes: no rashes MDM MDM MDM Narrative Medical decision making narrative: Patient has evidence of pharyngitis. With him having prolonged symptoms now complaining of hoarse voice and pain with movement of the larynx will obtain soft tissue x-ray of the neck. CBC was obtained to assess differential and rule out any atypical presentation for possible neoplasm. He denies history of autoimmune disorder nor was or family history Bite-A-Mins disorder or any unusual types of cancer. Lab Data Attestation: I reviewed the patient's lab results. Lab results narrative: CBC is unremarkable with normal differential. Rapid strep was negative. Labs: Laboratory Results - last 24 hr 04/25/21 17:51 WBC 7.4 RBC 5.22 Hgb 15.8 Hct 45.1 MCV 86.4 MCH 30.3 MCHC 35.0 RDW Std Deviation 39.3 RDW Coeff of John 12.4 Plt Count 316 MPV 9.3 Immature Gran % (Auto) 0.700 Neut % (Auto) 69.4 Lymph % (Auto) 22.7 Edmonson % (Auto) 5.9 Eos % (Auto) 0.9 Baso % (Auto) 0.4 Absolute Neuts (auto) 5.2 Absolute Lymphs (auto) 1.69 Nucleated RBC % 0 Radiography Diagnostic Testin view x-ray of the neck was negative. There is no evidence of sublingular swelling to suggest tonsillitis, there is no prevertebral swelling to suggest retropharyngeal abscess or evidence of a parapharyngeal abscess. The epiglottis is normal. Discharge Plan Triage Chief Complaint: Sore Throat ED Provider: Du Rowe Dx/Rx/DC Orders Clinical Impression: Pharyngitis, Laryngitis Prescriptions: No Action NK RF: 0 Primary Care Provider: Care Physician,No Primary Referrals: Tayler Blanco MD [STAFF PHYSICIAN] - 3-5 Days if not improving Care Physician,No Primary [Primary Care Provider] - Activity Restrictions/Additional Instructions: 1. Chloraseptic spray every 1-2 hours for throat pain 2. If your strep culture is positive you will be contacted otherwise this is a viral infection. And treatment is symptomatic. Disposition Disposition: Home, Self Care
--- NOTE | 2021-04-25 18:05 | RAD_ITS ---
INDICATION: Throat/neck pain, hoarse voice EXAMINATION/TECHNIQUE: X-RAY - XR Neck Soft Tissue COMPARISON: None. FINDINGS: SOFT TISSUES: Unremarkable. No radiopaque foreign body. EPIGLOTTIS: No pathologic thickening or enlargement. PROXIMAL AIRWAY: Grossly patent. RAD/Neck for Soft Tissue IMPRESSION: Negative. Electronically Signed: Rodo Molina MD at 18:52 EST ,
[2021-04-25 18:08] LABS: Absolute Lymphocyte Count 1.69 X10^3/uL (0.83-4.51); Absolute Neutrophil Count 5.2 X10^3/uL (2.0-7.7); Basophil# 0.03 X10^3/uL; Basophil% 0.4 % (0-1); Eosinophil# 0.07 X10^3/uL; Eosinophils% 0.9 % (0-5); Hematocrit 45.1 % (40-54); Hemoglobin 15.8 g/dL (13.0-16.5); Lymphocyte # 1.69 X10^3/ul (0.83-4.51); Lymphocyte % 22.7 % (19-41); Mean Corpuscular Hgb 30.3 pg (27.0-32.0); Mean Corpuscular Volume 86.4 fL (80-94); Mean Platelet Vol. 9.3 fl (6.2-12.0); Monocyte# 0.44 X10^3/uL; Monocyte% 5.9 % (0-10); NRBC Flagged by Analyzer 0 % (0-5); Neutrophil # 5.16 X10^3/uL (2.7-7.7); Neutrophil % 69.4 % (47-70); Platelet Count 316 K/mm3 (150-450); RBC Distribution Width CV 12.4 % (11.6-14.6); RBC Distribution Width SD 39.3 fl (35.1-43.9); Red Blood Count 5.22 M/mm3 (4.6-6.2); White Blood Count 7.4 K/mm3 (4.4-11.0)
== END 2021-04-25 18:48 | disposition home or self-care (01) ==
PROVIDERS: Emergency Provider Emergency Medicine; Visit Provider Emergency Medicine
DX: J04.0 Acute laryngitis (principal); F17.210 Nicotine dependence, cigarettes, uncomplicated
CPT/HCPCS: 36415; 70360; 85025; 87880; 99282

== ENCOUNTER → 2022-09-09 | Outpatient (CLI) | payer MEDICAID, SELFPAY ==
--- NOTE | 2022-09-09 17:10 | CT_ITS ---
EXAM: CT NECK WITH INTRAVENOUS CONTRAST CLINICAL INDICATION: THROAT PAIN ON RIGHT, MARKED WITH BB TECHNIQUE: Helically acquired images were obtained of the neck with intravenous contrast. This CT exam was performed using one or more of the following dose reduction techniques: automated exposure control, adjustment of the mA and/or kV according to patient size, and/or use of iterative reconstruction technique. CONTRAST: 75 cc of Isovue-300 IV. RADIATION DOSE: CTDIvol = 16.75 mGy, DLP = 535.58 mGy-cm COMPARISON: No relevant prior studies available. FINDINGS: NASOPHARYNX: Unremarkable. SUPRAHYOID NECK: Unremarkable. Oropharynx, oral cavity, parapharyngeal space and retropharyngeal space are unremarkable. INFRAHYOID NECK: Unremarkable. The larynx, hypopharynx and supraglottis are unremarkable. SUBMANDIBULAR/PAROTID GLANDS: Unremarkable. Glands are normal in size. THYROID: Unremarkable. No enlarged or calcified nodules. BONES/JOINTS: No acute fracture. SOFT TISSUES: Unremarkable. VASCULATURE: No acute findings. LYMPH NODES: Unremarkable. No lymphadenopathy. LUNG APICES: Unremarkable as visualized. CT/Soft Tissue Neck WITH Contrast IMPRESSION: Normal neck CT. Electronically Signed: Jerry Jang MD at 23:27 EDT ,
== END | disposition home or self-care (01) ==
LOC: CT 17:01
PROVIDERS: Referring Provider Otolaryngology; Visit Provider Otolaryngology
DX: R07.0 Pain in throat (principal)
CPT/HCPCS: 70491; Q9967

== ENCOUNTER 2022-09-29 09:32 | Emergency (ER) | payer MEDICAID, SELFPAY ==
[2022-09-29 09:33] VITALS: BP 168/97; PULSE 71; RESP 18; TEMP 36.1; O2SAT 100; BMI 27.8
--- NOTE | 2022-09-29 09:46 | EKG12_ITS ---
Test Reason : FALL/TRAUMA Blood Pressure : / mmHG Vent. Rate : 052 BPM Atrial Rate : 052 BPM P-R Int : 146 ms QRS Dur : 102 ms QT Int : 450 ms P-R-T Axes : 070 085 055 degrees QTc Int : 418 ms Sinus bradycardia with sinus arrhythmia Otherwise normal ECG Confirmed by MANUEL BINGHAM, UVALDO ([id number]), news assignment editor MARIA ELENA GONZALES ([id number]) on 09/30/2022 11:02:10 AM Referred By: Confirmed By:UVALDO JACKSON MD
--- NOTE | 2022-09-29 09:58 | EX.ED.GENINJ ---
HPI History of Present Illness Chief Complaint: Fall Narrative Narrative: 26-year-old male with right-sided rib, back, hip pain after a fall. Patient states he was higher than the second story and believes he was 20 feet high when his ladder came out from under him and he fell landing on the right side. It is unclear if he hit his head but he does not have any LOC or bruising. He denies neck pain. He does have lower back pain. He was able to drive to the ER. He states the pain is worse with movement and better with laying still. PFSH PFS Medical History (Updated 09/29/22 @ 11:[address] Jewel Olivares, DO) Anemia Back pain Chest pain Dizziness Fatigue Head ache Knee pain Loss of consciousness Neck pain Shortness of breath Shoulder pain Weight loss Medical History no medical history Home Medications oxycodone 5 mg capsule 5 mg PO Q8H PRN pain 3 days #12 caps 09/29/22 [Rx Last Taken Unknown] Allergy/AdvReac Type Severity Reaction Status Date / Time No Known Allergies Allergy Verified 09/29/22 09:37 Family History Other Diabetes Heart disease Social History household members: other Smoking Status: Current every day smoker tobacco type: cigarettes alcohol intake: current Alcohol type: beer substance use type: does not use ROS ROS ED Constitutional Constitutional ED: Denies chills, fever(s) or sweats Eyes Eyes: Denies blurry vision or change in vision ENT ENT ED: Denies ear pain or sore throat Cardiovascular Cardiovascular: Denies chest pain, palpitations or racing heartbeat Respiratory/Chest Respiratory/Chest: Reports other Details: Right rib pain ; Denies cough, dyspnea or sputum Gastrointestinal Gastrointestinal: Reports abdominal pain; Denies constipation, diarrhea, nausea or vomiting Genitourinary Genitourinary ED: Denies dysuria, hematuria or urinary frequency Musculoskeletal Musculoskeletal: Denies arthralgias, myalgias or neck pain Integumentary Denies abscess, Abrasions or rash Neurologic Neurologic: Denies headache(s), paresthesias or weakness Psychiatric Psychiatric: Denies anxiety, depression, suicidal ideation or suicidal thoughts Endocrine Endocrinology: Denies polydipsia or polyuria EXAM Physical Exam Const Vital Signs: 09/29/22 09:33 09/29/22 09:38 09/29/22 10:33 Temperature 96.9 F L Temperature Source Temporal Pulse Rate 71 Respiratory Rate 18 12 Respiratory Effort Normal Non-Labored Blood Pressure 168/97 H Blood Pressure Mean 120 Pulse Ox 100 Oxygen Delivery Method Room Air MDM MDM MDM Narrative Medical decision making narrative: Patient with fall from approximately 20 feet per his estimate. He has pain in the right flank and there is a large hematoma here but otherwise no midline spinal deformities or step-off. He is in a lot of pain. He is given morphine and Zofran IV. I did obtain lab work including a CBC, BMP, EtOH. These were all fairly unremarkable. EKG was performed which showed sinus bradycardia at a rate of 52 bpm without sign of ischemic change or dysrhythmia. This is compared to previous and unchanged. CT brain, cervical spine, chest abdomen pelvis revealed no acute fractures or injury or thoracic, or abdominal injuries. This was discussed with the patient and he is amenable to being discharged home. I will provide him with oxycodone. He request 3-day work note which was given. He states that this did happen at work but he does not want to file Workmen's Comp. Return precautions were discussed. Impression: 1. Fall from ladder 2. Blunt abdominal trauma Lab Data Attestation: I reviewed the patient's lab results. Labs: Laboratory Results - last 24 hr 09/29/22 09/29/22 09:30 09:43 WBC 11.2 H RBC 5.15 Hgb 15.3 Hct 44.6 MCV 86.6 MCH 29.7 MCHC 34.3 RDW Std Deviation 39.5 RDW Coeff of John 12.4 Plt Count 281 MPV 9.1 Immature Gran % (Auto) 0.200 Neut % (Auto) 80.7 H Lymph % (Auto) 13.5 L Brown % (Auto) 4.2 Eos % (Auto) 1.1 Baso % (Auto) 0.3 Absolute Neuts (auto) 9.1 H Absolute Lymphs (auto) 1.51 Nucleated RBC % 0 Sodium 138 Potassium 4.2 Chloride 107 Carbon Dioxide 25.0 Anion Gap 6 BUN 12 Creatinine 1.08 Estim Creat Clear Calc 118.40 Est GFR (MDRD) Af Amer 104 Est GFR (MDRD) Non-Af 86 BUN/Creatinine Ratio 11.1 Glucose 108 H Calcium 9.1 Total Bilirubin 0.40 Direct Bilirubin 0.12 AST 23 ALT 30 Alkaline Phosphatase 63 Total Protein 8.0 Albumin 4.2 Globulin 3.8 Ethyl Alcohol < 3.0 Radiography Diagnostic Testing: Clinical Impression(s) from Imaging Studies Brain CT 09/29/22 10:16 IMPRESSION: Normal unenhanced CT scan of the brain. Electronically Signed: Gumaro Mendoza MD at 10:37 EDT , Cervical Spine CT 09/29/22 10:16 IMPRESSION: Normal unenhanced CT examination of the cervical spine. Electronically Signed: Gumaro Mendoza MD at 10:39 EDT Reading Location ID and State: [id number] / [employer] , Service support , Chest/Abdomen/Pelvis CT 09/29/22 10:16 IMPRESSION: Normal enhanced CT chest, abdomen T pelvis examination. Electronically Signed: Gumaro Mendoza MD at 10:46 EDT , Discharge Plan Triage Chief Complaint: Fall Other Complaint: Trauma ED Provider: Jewel Olivares Dx/Rx/DC Orders Instructions: Blunt Abdominal Trauma Prescriptions: New oxycodone 5 mg capsule 5 mg PO Q8H PRN (Reason: pain) 3 Days Qty: 12 0RF Stand Alone Forms: ED Work / School Excuse Primary Care Provider: Care Physician,No Primary Referrals: Suzanne Tinsley MD [Med Staff - [employer] Text[employer] Machine Operator] - 3-5 Days Care Physician,No Primary [Primary Care Provider] - Disposition Disposition: Home, Self Care Discharge Date/Time: 09/29/22 11:18
[2022-09-29 09:59] LABS: Absolute Lymphocyte Count 1.51 X10^3/uL (0.83-4.51); Absolute Neutrophil Count 9.1 X10^3/uL (2.0-7.7); Basophil# 0.03 X10^3/uL; Basophil% 0.3 % (0-1); Eosinophil# 0.12 X10^3/uL; Eosinophils% 1.1 % (0-5); Hematocrit 44.6 % (40-54); Hemoglobin 15.3 g/dL (13.0-16.5); Lymphocyte # 1.51 X10^3/ul (0.83-4.51); Lymphocyte % 13.5 % (19-41); Mean Corp Hgb Conc 34.3 g/dL (32-36); Mean Corpuscular Hgb 29.7 pg (27.0-32.0); Mean Corpuscular Volume 86.6 fL (80-94); Mean Platelet Vol. 9.1 fl (6.2-12.0); Monocyte# 0.47 X10^3/uL; Monocyte% 4.2 % (0-10); NRBC Flagged by Analyzer 0 % (0-5); Neutrophil # 9.07 X10^3/uL (2.7-7.7); Neutrophil % 80.7 % (47-70); Platelet Count 281 K/mm3 (150-450); RBC Distribution Width CV 12.4 % (11.6-14.6); RBC Distribution Width SD 39.5 fl (35.1-43.9); Red Blood Count 5.15 M/mm3 (4.6-6.2); White Blood Count 11.2 K/mm3 (4.4-11.0)
[2022-09-29] MEDS: Ondansetron 4 MG/2 ML Vial IV (10:01)
[2022-09-29] MEDS: Morphine 4 MG/ML Syringe IV (10:01)
[2022-09-29] MEDS: 0.9% Normal Saline 1,000 ML 999 ML IV (10:01)
[2022-09-29 10:11] LABS: AST(SGOT) 23 U/L (15-37); Alanine Aminotransfer ALT/SGPT 30 U/L (16-61); Albumin, Serum 4.2 g/dL (3.2-5.0); Alkaline Phosphatase 63 U/L (45-117); Anion Gap 6 (5-15); BUN 12 mg/dL (7-18); BUN/Creat Ratio 11.1 RATIO (10-20); Bilirubin, Direct 0.12 mg/dL (0.00-0.30); Calcium,Total 9.1 mg/dL (8.5-10.1); Chloride 107 mmol/L (98-107); Creatinine, Serum 1.08 mg/dL (0.70-1.30); EST Glomerular Filtration Rate 86 mL/min (>60); Est Glom Filt Rate - Afr Amer 104 mL/min (>60); Globulin 3.8 g/dL (2.2-4.2); Glucose 108 mg/dL (74-106); Potassium 4.2 mmol/L (3.5-5.1); Sodium Level 138 mmol/L (136-145)
--- NOTE | 2022-09-29 10:16 | CT_ITS ---
STUDY: CT CHEST, ABDOMEN T PELVIS WITH CONTRAST REASON FOR EXAM: Male, 26 years old. Trauma . Fall from a height.-- TRAUMA ONLY: IV Contrast. Don''t weight for creatinine RADIATION DOSAGE (If Supplied By Facility): CTDIvol = ( 23.95 ) mGy, DLP = ( 2551.84 ) mGycm TECHNIQUE: Transaxial imaging was performed following intravenous administration of 100ML OF ISOVUE 300. Multiplanar coronal and sagittal images were reformatted. Individualized dose optimization techniques were used for this CT. COMPARISON: No relevant priors. FINDINGS: CHEST Minimal increased markings along the peripheral lateral aspect of the right lower lobe abutting the pleural surface as seen on axial image #89 and coronal image #122. This may represent a focal area of scarring. There is no demonstrated pleural abnormality. Normal heart and pericardium. Normal mediastinum. Normal hilar regions. Normal unenhanced pulmonary arteries. Normal aorta arch and descending thoracic aorta. Normal osseous structures. ABDOMEN Normal liver. Normal gallbladder and extrahepatic biliary system. There are multiple benign calcified granulomata of the spleen. Normal pancreas. Normal bilateral adrenal glands. Normal right kidney. Normal left kidney. Normal visualized stomach. Normal small intestine. There are scattered colonic diverticula consistent with diverticulosis. The appendix is visualized and appears normal. Normal abdominal aorta. Normal inferior vena cava. Normal retroperitoneum. Normal abdominal wall. Normal osseous structures. PELVIS Normal urinary bladder. Normal visualized small intestine. Normal visualized colon. There is no pelvic fluid. There is no pelvic lymphadenopathy or mass lesion. Normal visualized pelvic arteries. Normal abdominal wall. Normal osseous structures. CT/CT Chest, Abd, Pel w/Contrast IMPRESSION: Normal enhanced CT chest, abdomen T pelvis examination. Electronically Signed: Gumaro Mendoza MD at 10:46 EDT ,
--- NOTE | 2022-09-29 10:16 | CT_ITS ---
STUDY: CT BRAIN WITHOUT CONTRAST REASON FOR EXAM: Male, 26 years old. Fall from a height. RADIATION DOSAGE (If Supplied By Facility): CTDIvol = ( 44.99 ) mGy, DLP = ( 846.73 ) mGycm TECHNIQUE: Transaxial CT imaging of the brain was performed without administration of intravenous contrast material. Individualized dose optimization techniques were used for this CT. COMPARISON: No relevant priors. FINDINGS: Normal soft tissue structures. Normal calvarium. Normal size ventricles and extra-axial spaces for the patient''s age. Normal white matter tracts of the cerebral hemispheres. Normal basal ganglia and thalami. Normal brainstem. Normal cerebellum. There is no intracranial hemorrhage. There are no findings of an acute ischemic infarction. Minimal mucosal thickening of the lateral wall of the left maxillary sinus. CT/Brain/Head without Contrast IMPRESSION: Normal unenhanced CT scan of the brain. Electronically Signed: Gumaro Mendoza MD at 10:37 EDT ,
--- NOTE | 2022-09-29 10:16 | CT_ITS ---
STUDY: CT CERVICAL SPINE WITHOUT CONTRAST REASON FOR EXAM: Male, 26 years old. Fall from a height. RADIATION DOSAGE (If Supplied By Facility): CTDIvol = ( 23.22 ) mGy, DLP = ( 491.42 ) mGycm TECHNIQUE: High resolution transaxial imaging was performed without contrast material. Sagittal and coronal images were reconstructed. Individualized dose optimization techniques were used for this CT. COMPARISON: None FINDINGS: Normal craniovertebral junction. Normal anterior atlantoaxial articulation. Normal odontoid process. Normal cervical lordosis. Normal vertebral bodies and posterior osseous elements. C2-3: Normal endplates. Normal disc height and morphology. Normal central canal and intervertebral neuroforamina. C3-4: Normal endplates. Normal disc height and morphology. Normal central canal and intervertebral neuroforamina. C4-5: Normal endplates. Normal disc height and morphology. Normal central canal and intervertebral neuroforamina. C5-6: Normal endplates. Normal disc height and morphology. Normal central canal and intervertebral neuroforamina. C6-7: Normal endplates. Normal disc height and morphology. Normal central canal and intervertebral neuroforamina. C7-T1: Normal endplates. Normal disc height and morphology. Normal central canal and intervertebral neuroforamina. Normal visualized soft tissue structures. CT/Spine Cervical without Contras IMPRESSION: Normal unenhanced CT examination of the cervical spine. Electronically Signed: Gumaro Mendoza MD at 10:39 EDT ,
[2022-09-29 10:33] VITALS: RESP 12
[2022-09-29 10:59] LABS: Alcohol, Blood (Medical)-Serum < 3.0 mg/dL
== END 2022-09-29 11:18 | disposition home or self-care (01) ==
PROVIDERS: Emergency Provider Student in an Organized Health Care Education/Training Program; Visit Provider Student in an Organized Health Care Education/Training Program
DX: S30.1XXA Contusion of abdominal wall, initial encounter (principal); W11.XXXA Fall on and from ladder, initial encounter; F17.210 Nicotine dependence, cigarettes, uncomplicated
CPT/HCPCS: 70450; 71260; 72125; 74177; 80048; 80076; 82077; 85025; 93005; 96361; 96374; 96375; 99283; J7030; Q9967; J2405